=== PATIENT | male | born 1970 | race Caucasian/White ===

== ENCOUNTER 2022-01-10 11:26 | Emergency (ER) | payer SELFPAY ==
[2022-01-10 11:46] VITALS: BP 137/103; PULSE 104; RESP 18; TEMP 36.7; O2SAT 96; BMI 42.7
--- NOTE | 2022-01-10 11:53 | ED_ITS ---
HPI - Back Pain/Injury General: Chief Complaint: Back Pain/Injury Stated Complaint: Back pain Time Seen by Provider: 01/10/22 11:50 History of Present Illness: Patient is a 51-year-old male comes to the ED with back pain. Symptoms started approximately 2 days ago. Patient says he was lifting a plow 2 days ago and it caused pain in his lower back. He rates pain a 10 out of 10 and it radiates down into his left thigh. Most movements cause him worsening pain. He feels a little relief with stretching lower back. He has been taking ibuprofen for pain. Denies any cauda equina symptoms. Associated symptoms: Deny abdominal pain, chills, dysuria, fatigue, fever(s), hematuria, nausea or vomiting Review of Systems Const: Denies: fever(s), chills or fatigue Eyes: Denies: change in vision or eye discomfort ENMT: Denies: throat pain, odynophagia, nasal discharge or nasal congestion Card: Denies: chest pain, palpitations, edema, swelling of feet/ankles, dyspnea on exertion or orthopnea Resp: Denies: dyspnea, productive cough or non-productive cough GI: Denies: abdominal pain, nausea, vomiting, diarrhea, constipation or hematochezia : Denies: flank pain, difficulty urinating, dysuria or hematuria Musc: Reports: back pain; Denies: neck pain or extremity swelling Skin/Breast: Denies: rash or new lesions Neuro: Denies: headache(s), numbness in extremities or weakness in extremities PFS ED PFSH: Medical History No pertinent family history Surgical History No pertinent past surgical history Physical Exam Const: COMMON NORMALS: no acute distress, patient oriented x3 and alert GENERAL APPEARANCE: cooperative and comfortable HENMT: COMMON NORMALS: normocephalic HEAD & SCALP: normocephalic MOUTH: Normal oral and palatal mucosa present THROAT: posterior oropharynx normal and uvula midline Neck/C-Spine: COMMON NORMALS: supple GENERAL: Yes normal visual inspection Resp: COMMON NORMALS: normal respiratory effort, No retractions, No use of accessory muscles and clear to auscultation bilaterally AUSCULTATION: clear to auscultation bilaterally Cardio: COMMON NORMALS: regular rate, regular rhythm, S1 normal heart sound present, S2 normal heart sound present, No gallops present (Cardio), No clicks present (Cardio), No murmurs present (Cardio) and Peripheral pulses 2+ throughout RATE: regular rate RHYTHM: regular rhythm HEART SOUNDS: S1 normal heart sound present and S2 normal heart sound present PERIPHERAL PULSES: Peripheral pulses 2+ throughout GI: COMMON NORMALS: Normal to inspection, nondistended, normoactive bowel sounds present, Soft to palpation, non-tender and no masses PALPATION: Yes Soft to palpation : COMMON NORMALS: Yes no CVA tenderness BLADDER/KIDNEY EXAM: Yes no CVA tenderness Back/Pelvis: COMMON NORMALS: no CVA tenderness LUMBAR SPINE/LOWER BACK: Yes pain with ROM, No lumbar spinal tenderness and Yes paraspinal muscle tenderness Lumbar paraspinal muscle tenderness: left left lumbar paraspinal muscle tenderness: L3, L4 and L5 Extremity: COMMON NORMALS: normal to inspection Neuro: COMMON NORMALS: patient oriented x3 and moves all extremities SENSORIUM/ORIENTATION: Yes alert Skin: GENERAL SKIN EXAM: dry skin Course Vital Signs: Vital signs: Vital Signs Temperature 98.1 F 01/10/22 11:46 Pulse Rate 104 H 01/10/22 11:46 Respiratory Rate 18 01/10/22 11:46 Blood Pressure 137/103 01/10/22 11:46 Pulse Oximetry 96 01/10/22 11:46 MDM - Back Pain/Injury Medical Decision Making Patient is a 51-year-old male comes to the ED with lower back pain. Pain radiates down into the left thigh. Pain occurred after he was lifting a heavy plow. Denies cauda equina symptoms. X-ray of lumbar spine showed degenerative changes but no acute findings noted. Patient was given Norflex, Solu-Medrol and Toradol here in the ED. Patient diagnosed with lumbar radiculopathy and he was discharged home with a prescription for prednisone, Celebrex and Flexeril. He was told to follow-up with his PCP in 5 to 7 days reevaluation. Return to ED precautions given. Patient understood and agree with plan. Labs Radiology Impressions Lumbar Spine X-Ray 01/10/22 11:59 IMPRESSION: Degenerative changes as described above but no acute pathology detected. Discharge Plan Discharge Patient Disposition: Home Clinical Impression: Lumbar radiculopathy Condition: Stable Prescriptions: New Celebrex 100 mg capsule 100 mg PO BID PRN (Reason: pain) Qty: 20 0RF prednisone 20 mg tablet 20 mg PO BID 7 Days Qty: 14 0RF cyclobenzaprine 10 mg tablet 10 mg PO BID PRN (Reason: muscle spasm) Qty: 20 0RF Discharge Orders: Discharge ED (Routine); Ordered 01/10/22 Ordered By: Keaton Edwards Discharge Diet: Regular Discharge Activity: Increase activity as tolerated Patient Instructions: Lumbar Radiculopathy (ED) Activity Restrictions/Additional Instructions: Follow-up with medical provider as directed in 7 to 10 days reevaluation.Take medications as prescribed. Cyclobenzaprine is a muscle relaxer and can cause some drowsiness so take at night before going to bed. Apply cold pack or heat on lower back to help with symptoms. Stretch lower back daily. Return to the ER or your medical provider if condition worsens. Please read and understand discharge instructions. Thank you for choosing [facility] for your healthcare needs today. Please realize this is an emergency room and that we are providing you with a medical screening exam and this may not be complete and all inclusive of all the testing and or work up that you may need to determine your ailment or severity of your illness. It is very important that you follow up as instructed or that you return to the Emergency Department should you have concerns or if your condition changes or worsens in any way. Stand Alone Forms: Work/School Release Coding Level of Care Code ED F[employer] for [employer] Fwbe[employer] Exam Comprehensive
--- NOTE | 2022-01-10 11:59 | XRR_ITS ---
PROCEDURE INFORMATION: Exam: XR Lumbosacral Spine Exam date and time: 01/10/2022 11:59 AM Age: 51 years old Clinical indication: Low back pain; Additional info: Lifting heavy object, low back pain TECHNIQUE: Imaging protocol: XR of the lumbosacral spine. Views: 2 or 3 views. Total images: 3 COMPARISON: No relevant prior studies available. FINDINGS: Bones/joints: Mild disc space height loss at L5/S1 with vacuum phenomenon. Mild scattered degenerative changes of the spine. L4-S1 Facet joint degenerative changes are present. Soft tissues: Unremarkable. XR/XR lumbar spine 2-3V* [id number] IMPRESSION: Degenerative changes as described above but no acute pathology detected.
[2022-01-10] MEDS: ketorolac 60 mg/2 mL INJ IM (12:08)
[2022-01-10] MEDS: orphenadrine 30 mg/mL Inj 2 mL 60 MG IM (12:09)
== END 2022-01-10 14:14 | disposition home or self-care (01) ==
PROVIDERS: Emergency Provider Physician Assistant
DX: M54.16 Radiculopathy, lumbar region (principal)
CPT/HCPCS: 72100; 96372; 99283; J1885; J2360; J2930